=== PATIENT | male | born 1985 | race Caucasian/White ===

== ENCOUNTER 2017-06-15 06:07 | Day surgery (SDC) | payer BC ==
[2017-06-06 17:51] VITALS: BMI 30.4
[2017-06-15] MEDS ORDERED: DEXAMETHASONE SOD PHOSPHATE/PF 10 MG/ML SDV ONE (07:22)
[2017-06-15] MEDS ORDERED: MIDAZOLAM HCL 2 MG/2 ML SINGLE DOSE VIAL ONE ×2 (07:22→07:26)
[2017-06-15] MEDS ORDERED: BUPIVACAINE HCL/PF (5 MG/ML) 30 ML VIAL IJ ONE (07:23)
[2017-06-15] MEDS ORDERED: BUPIVACAINE HCL/PF 2.5 MG/ML - 30 ML VIAL IJ ONE (07:25)
[2017-06-15] MEDS ORDERED: EPINEPHrine 1:1,000 1 MG/1 ML - 30ML VIAL (INJECTION) ONE (07:30)
[2017-06-15] MEDS ORDERED: PROPOFOL 20 ML ONE ×3 (07:58)
[2017-06-15] MEDS ORDERED: SUCCINYLCHOLINE CHLORIDE 200 MG/10 ML VIAL ONE (07:59)
[2017-06-15] MEDS ORDERED: ONDANSETRON 4 MG/2 ML VIAL ONE (09:08)
[2017-06-15] MEDS ORDERED: DEXAMETHASONE SOD PHOSPHATE 4 MG/1 ML VIAL ONE (09:08)
[2017-06-15] MEDS ORDERED: ceFAZolin SODIUM 1 GM VIAL ONE (09:08)
[2017-06-15] MEDS ORDERED: KETOROLAC TROMETHAMINE 30 MG/1 ML VIAL ONE (09:08)
[2017-06-15] MEDS ORDERED: LIDOCAINE HCL 2% JELLY (5 ML/TUBE) ONE (09:08)
[2017-06-15] MEDS ORDERED: HYDROmorphone HCL/PF 1 MG/ML VIAL (FOR PYXIS CHARGING ONLY) ONE (09:43)
--- NOTE | 2017-06-15 10:31 | OP ---
Operative Note - Note: Operative Date: 06/15/17 Pre-Operative Diagnosis: left knee ACL rupture Operation: left knee acl reconstruction, hamstring autograft, lateral meniscal repair Post-Operative Diagnosis: Same as Pre-op (+LMT) Surgeon: Waylon Ji Proof Clerk: Guero Julian Anesthesiologist/HYDROTEL OPERATOR: Ganesh Veronica Anesthesia: General, Fractional Estimated Blood Loss (mls): 30 Operative Report Dictated: Yes
--- NOTE | 2017-06-15 11:10 | OP ---
DATE OF OPERATION: 06/15/2017 PREOPERATIVE DIAGNOSIS: Left knee anterior cruciate ligament rupture. POSTOPERATIVE DIAGNOSIS: Left knee anterior cruciate ligament rupture plus lateral meniscal tear. PROCEDURE: Left knee arthroscopy with anterior cruciate ligament reconstruction, hamstring autograft, lateral meniscal repair. SURGEON: Waylon Ji MD BILLET INSPECTOR: YUSUF Nelson, whose skillful assistance was necessary for the safe and timely performance of this procedure. Mr. Julian was able to help provide limb positioning, drive the camera, assist in the passage of sutures, graft preparation, as well as graft insertion and fixation. ANESTHESIA: Regional plus general. POSTOPERATIVE CONDITION: Stable. COMPLICATIONS: None. INDICATIONS: This is a pleasant gentleman who tore his ACL playing basketball. We discussed treatment options including nonoperative versus operative care. Operative repair was recommended given his active lifestyle. Surgical risks were reviewed in detail including bleeding, infection, neurovascular injury, need for further surgery, postoperative pain or stiffness, graft failure or re-rupture. We discussed medical risks such as heart attack, stroke, DVT, PE, and . We discussed mediations to go on to develop post-traumatic arthrosis at some point his life. We reviewed the postoperative rehabilitation protocol and limitations afterwards. DESCRIPTION OF PROCEDURE: The patient was brought to the operating room where general anesthesia was administered. Left lower extremity was examined demonstrating full range of motion, mild effusion, positive Antonietta, positive pivot shift. Patient was then prepped and draped in the usual sterile fashion. A preoperative dose of antibiotics was given, and the usual time-out procedure was performed. Attention was now turned to the graft harvest. An incision was planned out over the pes tendons. The limb was then exsanguinated. Tourniquet was inflated to 250 mmHg. The incision was now carried down through skin through subcutaneous tissue. Blunt spreading was used to expose the sartorius fascia. The fascia was then split in line with its fibers. A 90-degree clamp was used to retrieve both the gracilis and semitendinosus. These were whipstitched and then elevated off the tibial surface using 15 blade. Both were freed of any surrounding soft tissue attachments, and the tendon stripper was used to retrieve both tendons. These were then brought to the back table and prepared into a graft, which was 68 mm x 11 mm. The arthroscopy was concurrently started on the knee. A lateral portal was established. The arthroscope was passed into the knee. Examination of the patellofemoral joint demonstrated some superficial cartilage wear. Passing the arthroscope into the notch demonstrated a ruptured ACL. The arthroscope was passed into the medial compartment. Here, medial portal was established under spinal needle localization. The probe was then passed into the medial meniscus, which was found to be without lesions. No articular lesions were noted, as well. The arthroscope was then passed into the lateral compartment. Here, a vertical tear was noted in the red-white zone of the posterior horn extending into the body of the lateral meniscus. Incision was made to perform a meniscal repair. Meniscus was debrided first. The meniscus was then fixed in place utilizing 2 Fast-Fix 360 devices which were transferred in horizontal mattress fashion to a depth of 14 mm. Both sutures were cinched down and cut, securing the meniscus into place. It was probed and now found to be stable. The arthroscope was now passed into the notch. The ACL remnant was debrided. The anatomic origin and insertion were identified. The femoral drill guide was now inserted through the lateral portal with the camera in the medial portal. The trocar was now inserted through a small incision in the lateral aspect of femur. FlipCutter was drilled into the knee and into the anatomic origin of the ACL and femur. FlipCutter placement was verified and was satisfactory. The FlipCutter then now toggled, and an 11-mm socket was created. After drilling the socket, small bent was noted in the FlipCutter. So, it was removed and discarded. The passing suture was placed. Attention was then turned to the tibial footprint. Here, again, the anatomic footprint was located, and the FlipCutter guide was inserted. The FlipCutter was then drilled into the knee. Placement was verified, and then a 30 mm x 11 mm socket was created here. A passing suture was again placed. The graft was now loaded onto the passing suture and then seated into the femoral socket by 15 mm. The tibial side was then passed, as well. The femoral side was now seated to a pull-back of 20 mm. Tibial side was now loaded onto the button. The knee was cycled several times. The knee was then placed into the position of 20 degrees of flexion. The tibial side was tightened down. Antonietta maneuver was now performed, and the knee was found to be stable. The excess sutures were now tied and then cut. The sartorius fascia was repaired using 0 Vicryl. Subcutaneous tissue was approximated using 2-0 Vicryl. The skin was closed using 3-0 and 4-0 nylon. Sterile dressings were placed. Patient was placed into an extension brace. He was extubated and transferred to the recovery room in stable condition. John COTA/[id number]
[2017-06-15] MEDS ORDERED: oxyCODONE HCL 5 MG TABLET ONE (11:20)
[2017-06-15] MEDS ORDERED: ONDANSETRON 4 MG/2 ML VIAL IVPUSH PRN (11:43)
[2017-06-15] MEDS ORDERED: oxyCODONE HCL 5 MG TABLET PO PRN ×2 (11:43)
[2017-06-15] MEDS ORDERED: PROMETHAZINE HCL 25 MG/1 ML VIAL IVPUSH PRN (11:43)
[2017-06-15] MEDS ORDERED: LACTATED RINGERS SOLUTION 1,000 ML IV SCH (11:45)
[2017-06-15 13:45] VITALS: BP 130/82; PULSE 89; TEMP 98.2
== END 2017-06-15 13:45 | disposition home or self-care (01) ==
LOC: FASU 06:07
PROVIDERS: ATTEND Orthopaedic Surgery Sports Medicine
PROC: 0SBD4ZZ Excision of Left Knee Joint, Percutaneous Endoscopic Approach (ICD-10-PCS; 2017-06-15)
PROC: 0MRP47Z Replacement of Left Knee Bursa and Ligament with Autologous Tissue Substitute, Percutaneous Endoscopic Approach (ICD-10-PCS; principal; 2017-06-15 08:19)
DX: S83.512A Sprain of anterior cruciate ligament of left knee, initial encounter (principal); S83.282A Other tear of lateral meniscus, current injury, left knee, initial encounter; X58.XXXA Exposure to other specified factors, initial encounter; Y93.89 Activity, other specified; Y92.89 Other specified places as the place of occurrence of the external cause
CPT/HCPCS: 94760